=== PATIENT | male | born 1990 | race Caucasian/White ===

== ENCOUNTER 2023-05-07 11:17 | Emergency (ER) | payer BC ==
[2023-05-07] MEDS ORDERED: LIDOCAINE 5% PATCH TOPICAL STA (12:33)
[2023-05-07] MEDS ORDERED: ORPHENADRINE 30 MG/ML 2 ML VIAL IM STA (12:33)
--- NOTE | 2023-05-07 12:37 | ED ---
General Adult HPI - General Chief complaint: Extremity Injury, Lower Stated complaint: R leg injury Time Seen by Provider: 05/07/23 12:20 Source: patient, RN notes reviewed Mode of arrival: ambulatory - History of Present Illness Initial comments: 33-year-old male presents to the emergency department with chief complaint of right posterior thigh pain 3 days. He states that he was playing softball on Saturday when his right leg went stiff while running the bases. He states that he tightness in his right posterior thigh since then but no other muscle pain or stiffness. He reports that he did not fall. He reports that he is not having pain to the knee, hip. He reports no significant past medical history. No known medication ALLERGIES. Denies numbness, tingling. Denies fever, chills. - Related Data Previous Rx's Medication Instructions Recorded Cyclobenzaprine [Flexeril] 5 mg PO TID PRN #9 tablet 05/07/23 Allergies Allergy/AdvReac Type Severity Reaction Status Date / Time No Known Allergies Allergy Verified 05/07/23 12:09 Review of Systems ROS Statement: Those systems with pertinent positive or pertinent negative responses have been documented in the HPI. ROS Other: All systems not noted in ROS Statement are negative. Past Medical History Past Medical History: No Reported History History of Any Multi-Drug Resistant Organisms: None Reported Past Surgical History: Orthopedic Surgery, Tonsillectomy Additional Past Surgical History / Comment(s): rt elbow Past Psychological History: No Psychological Hx Reported Smoking Status: Former smoker Past Alcohol Use History: None Reported Past Drug Use History: Marijuana General Exam Limitations: no limitations General appearance: alert, in no apparent distress Head exam: Present: atraumatic, normocephalic, normal inspection Eye exam: Present: normal appearance ENT exam: Present: normal exam, mucous membranes moist Neck exam: Present: normal inspection. Absent: tenderness, meningismus, lymphadenopathy Respiratory exam: Present: normal lung sounds bilaterally. Absent: respiratory distress, wheezes, rales, rhonchi, stridor Cardiovascular Exam: Present: regular rate, normal rhythm, normal heart sounds. Absent: systolic murmur, diastolic murmur, rubs, gallop, clicks GI/Abdominal exam: Present: soft, normal bowel sounds. Absent: distended, tenderness, guarding, rebound, rigid Extremities exam: Present: normal inspection, full ROM, normal capillary refill, other (DP and PT pulses 2+, no lower extremity edema). Absent: tenderness, pedal edema, joint swelling, calf tenderness Back exam: Present: normal inspection. Absent: tenderness Neurological exam: Present: alert, oriented X3 Psychiatric exam: Present: normal affect, normal mood Skin exam: Present: warm, dry, intact, normal color. Absent: rash Course Vital Signs 05/07/23 05/07/23 12:05 13:24 Temperature 97.9 F 98.1 F Pulse Rate 70 78 Respiratory 20 18 Rate Blood Pressure 141/92 142/88 O2 Sat by Pulse 98 98 Oximetry Medical Decision Making - Medical Decision Making Was pt. sent in by a medical professional or institution (, PA, SPORTS MEDICINE COORDINATOR, urgent care, hospital, or prison...) When possible be specific @ -No Did you speak to anyone other than the patient for history (EMS, parent, family, police, friend...)? What history was obtained from this source @ -No Did you review nursing and triage notes (agree or disagree)? Why? @ -I reviewed and agree with nursing and triage notes Were old charts reviewed (outside hosp., previous admission, EMS record, old EKG, old radiological studies, urgent care reports/EKG's, prison records)? Report findings @ -No old charts were reviewed Differential Diagnosis (chest pain, altered mental status, abdominal pain women, abdominal pain men, vaginal bleeding, weakness, fever, dyspnea, syncope, headache, dizziness, GI bleed, back pain, seizure, CVA, palpatations, mental health, musculoskeletal)? @ -Differential Musculoskeletal Muscular strain, contusion, ligament sprain, fracture, arthritis, septic arthritis, bursitis, cellulitis, muscle spasm, nerve compression, DVT, arterial occlusion, herpes zoster, electrolyte abnormality, tumor.... This is not meant to be in all inclusive list EKG interpreted by me (3pts min.). @ -none X-rays interpreted by me (1pt min.). @ -None done CT interpreted by me (1pt min.). @ -None done U/S interpreted by me (1pt. min.). @ -None done What testing was considered but not performed or refused? (CT, X-rays, U/S, labs)? Why? @ -X-rays considered but patient is not having any bony tenderness. What meds were considered but not given or refused? Why? @ -None Did you discuss the management of the patient with other professionals (professionals i.e. Dr., PA, SPORTS MEDICINE COORDINATOR, lab, RT, psych nurse, social worker psychiatric, audio visual arts director, teacher, loan servicing officer, supportive employment case manager)? Give summary @ -No Was smoking cessation discussed for >3mins.? @ -No Was critical care preformed (if so, how long)? @ -No Were there social determinants of health that impacted care today? How? (Homelessness, low income, unemployed, alcoholism, drug addiction, transportation, low edu. Level, literacy, decrease access to med. care, alf, rehab)? @ -No Was there de-escalation of care discussed even if they declined (Discuss DNR or withdrawal of care, Hospice)? DNR status @ -No What co-morbidities impacted this encounter? (DM, HTN, Smoking, COPD, CAD, Cancer, CVA, ARF, Chemo, Hep., AIDS, mental health diagnosis, sleep apnea, morbid obesity)? @ -None Was patient admitted / discharged? Hospital course, mention meds given and route, prescriptions, significant lab abnormalities, going to OR and other pertinent info. @ -Discharged. Patient presented to emergency department chief complaint of pain in his right posterior thigh that started while playing softball this weekend. He reports that he feels that he possibly twisted and had sudden pain in the right leg and had to sit out for the duration of his game. Patient was given Norflex and a lidocaine patch which he states improves his symptoms. Patient was given Flexeril for home and advised not to take this while working, driving. Patient stable at time of discharge. Case discussed with my attending, Dr. jolly Undiagnosed new problem with uncertain prognosis? @ -No Drug Therapy requiring intensive monitoring for toxicity (Heparin, Nitro, Insulin, Cardizem)? @ -No Were any procedures done? @ -No Diagnosis/symptom? @ -Hamstring strain Acute, or Chronic, or Acute on Chronic? @ -Acute Uncomplicated (without systemic symptoms) or Complicated (systemic symptoms)? @ -uncomplicated Side effects of treatment? @ -No Exacerbation, Progression, or Severe Exacerbation? @ -No Poses a threat to life or bodily function? How? (Chest pain, [place], [place], pneumonia, PE, COPD, DKA, ARF, appy, cholecystitis, CVA, Diverticulitis, Homicidal, Suicidal, threat to staff... and all critical care pts) @ -No Disposition Clinical Impression: Hamstring strain Disposition: HOME SELF-CARE Condition: Stable Instructions (If sedation given, give patient instructions): Hamstring Injury (ED) Additional Instructions: Please do not drive or operate heavy machinery while taking muscle relaxer. Please return to the emergency department for new or worsening symptoms. Prescriptions: Cyclobenzaprine [Flexeril] 5 mg PO TID PRN #9 tablet PRN Reason: Muscle Spasm Is patient prescribed a controlled substance at d/c from ED?: No Referrals: None,Stated [Primary Care Provider] - 1-2 days Time of Disposition: 13:16
[2023-05-07 13:26] VITALS: BP 142/88; PULSE 78; RESP 18; TEMP 98.1
== END 2023-05-07 13:28 | disposition home or self-care (01) ==
LOC: EC 11:17
DX: S76.311A Strain of muscle, fascia and tendon of the posterior muscle group at thigh level, right thigh, initial encounter (principal); F12.90 Cannabis use, unspecified, uncomplicated; Z87.891 Personal history of nicotine dependence; X58.XXXA Exposure to other specified factors, initial encounter; Y93.64 Activity, baseball
CPT/HCPCS: 99283; 96372; J2360

== ENCOUNTER 2023-11-07 08:40 | Inpatient (IN) | payer BC ==
--- NOTE | 2023-11-07 09:25 | ED ---
Abdominal Pain HPI - General Chief Complaint: Abdominal Pain Stated Complaint: Left side ABD Pain Time Seen by Provider: 11/07/23 09:05 Source: patient, RN notes reviewed Mode of arrival: ambulatory Limitations: no limitations - History of Present Illness Initial Comments: Patient is a 33-year-old male presented to the emergency room today with a chief complaint of left-sided flank pain. Patient does admit that he had some symptoms off and on over the last week he has noted some darker urine. Even a smell to it. Patient states never had similar symptoms in the past. He denies any other past medical history. Patient does admit the pain is intermittent. States he is comfortable currently. Is declining pain medication. He denies any other symptoms or complaints at this time. Patient denies any recent fever, chills, shortness of breath, chest pain, vomiting, numbness or tingling, dysuria or hematuria, constipation or diarrhea, headaches or visual changes, or any other complaints. - Related Data Previous Rx's Medication Instructions Recorded Cyclobenzaprine [Flexeril] 5 mg PO TID PRN #9 tablet 05/07/23 Allergies Allergy/AdvReac Type Severity Reaction Status Date / Time No Known Allergies Allergy Verified 05/07/23 12:09 Review of Systems ROS Statement: Those systems with pertinent positive or pertinent negative responses have been documented in the HPI. ROS Other: All systems not noted in ROS Statement are negative. Past Medical History Past Medical History: No Reported History History of Any Multi-Drug Resistant Organisms: None Reported Past Surgical History: Adenoidectomy, Orthopedic Surgery, Tonsillectomy Additional Past Surgical History / Comment(s): rt elbow Past Psychological History: No Psychological Hx Reported Smoking Status: Former smoker Past Alcohol Use History: None Reported Past Drug Use History: Marijuana General Exam - General Exam Comments Initial Comments: General: The patient is awake and alert, in no distress, and does not appear acutely ill. Eye: Extra-ocular movements are intact. There is normal conjunctiva bilaterally. No signs of icterus. Ears, nose, mouth and throat: There are moist mucous membranes and no oral lesions. Neck: The neck is supple, there is no tenderness or JVD. Cardiovascular: There is a regular rate and rhythm. No murmur, rub or gallop is appreciated. Respiratory: respirations are non-labored Gastrointestinal: Mild tenderness to left lower quadrant. No rebound, or CVA tenderness. Musculoskeletal: Normal ROM, no tenderness. Strength 5/5. Sensation intact. Pulses equal bilaterally 2+. Neurological: A&O x 3. CN II-XII intact, There are no obvious motor or sensory deficits. Coordination appears grossly intact. Speech is normal. Skin: Skin is warm and dry and no rashes or lesions are noted. Psychiatric: Cooperative, appropriate mood & affect, normal judgment. Limitations: no limitations Course Vital Signs 11/07/23 11/07/23 08:53 10:35 Temperature 100.3 F H 98.4 F Pulse Rate 100 Respiratory 20 Rate Blood Pressure 162/105 O2 Sat by Pulse 98 Oximetry Medical Decision Making - Medical Decision Making History was obtained from patient/Nurse/Family/ ____ Initial assessment and chief complaint: Abdominal pain Chronic conditions affecting care: None Social determinants affecting care: None Differential diagnosis included, but not limited to: Kidney stone, gastroe nteritis, gastritis, diverticulitis, colitis Patient 33-year-old male with no significant past medical history presenting to the emergency room today with a chief complaint of left-sided abdominal pain over the last week. Does admit to some darker urine. Patient did have fever at triage. Remaining vitals were unremarkable. Patient urinalysis shows no sign of infection. Patient did have an elevated white count of 18,000. CT of the abdomen pelvis was reviewed and does show evidence of diverticulitis with abscess measuring 4 x 2 cm. Case discussed with surgeon Dr. Carrillo who will admit patient. Patient was started on antibiotics of Rocephin, Flagyl here in the emergency room. He will remain NPO. Dr. Carrillo states he will place consult to interventional radiologist. Patient does have cultures pending. Patient's been updated and he and family are aware of the plan. - Lab Data Result diagrams: 11/07/23 09:15 11/07/23 09:15 Lab Results 11/07/23 11/07/23 11/07/23 Range/Units 09:15 09:15 09:15 WBC 18.8 H (3.8-10.6) k/uL RBC 4.28 L (4.30-5.90) m/uL Hgb 12.5 L (13.0-17.5) gm/dL Hct 37.2 L (39.0-53.0) % MCV 86.9 (80.0-100.0) fL MCH 29.3 (25.0-35.0) pg MCHC 33.7 (31.0-37.0) g/dL RDW 12.4 (11.5-15.5) % Plt Count 472 H (150-450) k/uL MPV 7.7 Neutrophils % 82 % Lymphocytes % 11 % Monocytes % 5 % Eosinophils % 1 % Basophils % 0 % Neutrophils # 15.5 H (1.3-7.7) k/uL Lymphocytes # 2.1 (1.0-4.8) k/uL Monocytes # 0.9 (0-1.0) k/uL Eosinophils # 0.2 (0-0.7) k/uL Basophils # 0.0 (0-0.2) k/uL Sodium 136 L (137-145) mmol/L Potassium 4.5 (3.5-5.1) mmol/L Chloride 101 (98-107) mmol/L Carbon Dioxide 25 (22-30) mmol/L Anion Gap 10 mmol/L BUN 17 (9-20) mg/dL Creatinine 0.73 (0.66-1.25) mg/dL Est GFR (CKD-EPI)AfAm >90 (>60 ml/min/1.73 sqM) Est GFR (CKD-EPI)NonAf >90 (>60 ml/min/1.73 sqM) Glucose 107 H (74-99) mg/dL Plasma Lactic Acid Van (0.7-2.0) mmol/L Calcium 9.6 (8.4-10.2) mg/dL Total Bilirubin 0.6 (0.2-1.3) mg/dL AST 30 (17-59) U/L ALT 69 H (4-49) U/L Alkaline Phosphatase 261 H (38-126) U/L Total Protein 7.1 (6.3-8.2) g/dL Albumin 3.9 (3.5-5.0) g/dL Lipase 66 (23-300) U/L Urine Color Colorless Urine Appearance Clear (Clear) Urine pH 6.5 (5.0-8.0) Ur Specific [place] 1.002 (1.001-1.035) Urine Protein Negative (Negative) Urine Glucose (UA) Negative (Negative) Urine Ketones Negative (Negative) Urine Blood Negative (Negative) Urine Nitrite Negative (Negative) Urine Bilirubin Negative (Negative) Urine Urobilinogen <2.0 (<2.0) mg/dL Ur Leukocyte Esterase Negative (Negative) 11/07/23 Range/Units 10:24 WBC (3.8-10.6) k/uL RBC (4.30-5.90) m/uL Hgb (13.0-17.5) gm/dL Hct (39.0-53.0) % MCV (80.0-100.0) fL MCH (25.0-35.0) pg MCHC (31.0-37.0) g/dL RDW (11.5-15.5) % Plt Count (150-450) k/uL MPV Neutrophils % % Lymphocytes % % Monocytes % % Eosinophils % % Basophils % % Neutrophils # (1.3-7.7) k/uL Lymphocytes # (1.0-4.8) k/uL Monocytes # (0-1.0) k/uL Eosinophils # (0-0.7) k/uL Basophils # (0-0.2) k/uL Sodium (137-145) mmol/L Potassium (3.5-5.1) mmol/L Chloride (98-107) mmol/L Carbon Dioxide (22-30) mmol/L Anion Gap mmol/L BUN (9-20) mg/dL Creatinine (0.66-1.25) mg/dL Est GFR (CKD-EPI)AfAm (>60 ml/min/1.73 sqM) Est GFR (CKD-EPI)NonAf (>60 ml/min/1.73 sqM) Glucose (74-99) mg/dL Plasma Lactic Acid Van 0.8 (0.7-2.0) mmol/L Calcium (8.4-10.2) mg/dL Total Bilirubin (0.2-1.3) mg/dL AST (17-59) U/L ALT (4-49) U/L Alkaline Phosphatase (38-126) U/L Total Protein (6.3-8.2) g/dL Albumin (3.5-5.0) g/dL Lipase (23-300) U/L Urine Color Urine Appearance (Clear) Urine pH (5.0-8.0) Ur Specific [place] (1.001-1.035) Urine Protein (Negative) Urine Glucose (UA) (Negative) Urine Ketones (Negative) Urine Blood (Negative) Urine Nitrite (Negative) Urine Bilirubin (Negative) Urine Urobilinogen (<2.0) mg/dL Ur Leukocyte Esterase (Negative) Disposition Clinical Impression: Diverticulitis of intestine with abscess Disposition: [facility] Condition: Stable Referrals: None,Stated [Primary Care Provider] - 1-2 days Time of Disposition: 11:30
[2023-11-07] MEDS: SODIUM CHLORIDE 0.9% 1,000 ML IV STA (09:26)
[2023-11-07] MEDS: ACETAMINOPHEN TAB 500 MG TAB PO STA (09:31)
[2023-11-07 09:48] LABS: Appearance,Urine Clear (Clear); Bilirubin,Urine Negative (Negative); Blood,Urine Negative (Negative); Color,Urine Colorless; Glucose,Urine (UA) Negative (Negative); Ketones,Urine Negative (Negative); Leukocyte Esterase,Urine Negative (Negative); Nitrite,Urine Negative (Negative); PH, Urine 6.5 (5.0-8.0); Protein,Urine Negative (Negative); Specific Gravity,Urine 1.002 (1.001-1.035); Urobilinogen,Urine <2.0 mg/dL (<2.0)
[2023-11-07 09:49] LABS: Basophils % (A) 0 %; Eosinophils # (A) 0.2 k/uL (0-0.7); Eosinophils % (A) 1 %; HCT 37.2 % (39.0-53.0); HGB 12.5 gm/dL (13.0-17.5); Lymphocytes # (A) 2.1 k/uL (1.0-4.8); Lymphocytes % (A) 11 %; MCH 29.3 pg (25.0-35.0); MCHC 33.7 g/dL (31.0-37.0); MCV 86.9 fL (80.0-100.0); Mean Platelet Volume 7.7; Monocytes # (A) 0.9 k/uL (0-1.0); Monocytes % (A) 5 %; Neutrophils # (A) 15.5 k/uL (1.3-7.7); Neutrophils % (A) 82 %; Platelet Count 472 k/uL (150-450); RBC 4.28 m/uL (4.30-5.90); RDW 12.4 % (11.5-15.5); WBC 18.8 k/uL (3.8-10.6)
[2023-11-07 10:09] LABS: ALT 69 U/L (4-49); AST 30 U/L (17-59); African American GFR (CKD) >90 (>60 ml/min/1.73 sqM); Albumin 3.9 g/dL (3.5-5.0); Alkaline Phosphatase 261 U/L (38-126); Anion Gap 10 mmol/L; Blood Urea Nitrogen 17 mg/dL (9-20); Calcium 9.6 mg/dL (8.4-10.2); Carbon Dioxide 25 mmol/L (22-30); Chloride 101 mmol/L (98-107); Glucose 107 mg/dL (74-99); Lipase 66 U/L (23-300); Non-African American GFR(CKD) >90 (>60 ml/min/1.73 sqM); Potassium 4.5 mmol/L (3.5-5.1); Sodium 136 mmol/L (137-145); Total Bilirubin 0.6 mg/dL (0.2-1.3); Total Protein 7.1 g/dL (6.3-8.2)
--- NOTE | 2023-11-07 10:13 | CT ---
EXAMINATION TYPE: CT abdomen pelvis w con DATE OF EXAM: 11/07/2023 COMPARISON: None INDICATION: abd pain DLP: 1160.1 mGycm, Automated exposure control for dose reduction was used. CONTRAST: 100 mL of Isovue 300. Study performed without Oral Contrast TECHNIQUE: Axial images were obtained from above the diaphragm to the pubic rami in the axial plane a t 5 mm thick sections. Reconstructed images are reviewed on the computer in the coronal plane. FINDINGS: Limited CT sections are obtained the lung bases. The lung bases are clear. CT ABDOMEN: Liver: Normal Spleen: Normal Pancreas: Normal Adrenal glands: The adrenal glands are normal. Gallbladder: Decompressed. Kidneys: No masses are evident. No hydronephrosis is present. No cysts are present. Tiny cortical renal cyst on left kidney is identified on the delayed images. Aorta: Vascular calcification is within the aorta. Inferior vena cava: Normal. CT PELVIS: Scattered diverticuli within the descending colon through the sigmoid colon. Inflammatory changes are adjacent to the distal descending colon sigmoid colon junction. There is a low-density collection wh ich contains some air suspicious for abscess with adjacent acute diverticulitis. Delayed images this appears slightly better visualized measuring 4.3 cm x 2.0 cm . The studies without oral contrast li miting some evaluation. Appendix: Normal as visualized. Urinary bladder: Mildly diffusely thickened wall Genitourinary structures: Prostate appears normal Osseous structures: No suspicious lytic or sclerotic lesions. IMPRESSION: 1. Acute diverticulitis at the descending colon sigmoid colon junction. There is an abscess anterio r to the colon with surrounding inflammatory changes.
[2023-11-07] MEDS: metroNIDAZOLE-NS PMX 500 MG in SALINE 1 100ML.BAG IVPB STA (11:13)
[2023-11-07] MEDS ORDERED: NALOXONE 0.4 MG/ML 1 ML VIAL IV PRN (12:06)
[2023-11-07] MEDS: SODIUM CHLORIDE 0.9% 1,000 ML IV SCH (12:21)
[2023-11-07 13:11] LABS: INR 1.3 (<1.2); Prothrombin Time 13.5 sec (10.0-12.5)
--- NOTE | 2023-11-07 13:21 | P.GSHP ---
History of Present Illness H&P Date: 11/07/23 CHIEF COMPLAINT: Left lower quadrant abdominal pain HISTORY OF PRESENT ILLNESS: This is a 33-year-old male who presented to the hospital with complaints of left lower quadrant abdominal pain for the past week and a half. Patient reports that the pain does become very severe and sharp. He would rate the pain 10 out of 10. Pain currently a 7 out of 10. He denies any prior history of diverticulitis. He reports that the pain radiates from the left lower quadrant into the rectum. He reports he is having bowel movements. No constipation. Denies any blood in the stools. Denies any prior abdominal surgical history. CT scan of the abdomen and pelvis had shown evidence of acute diverticulitis of the descending colon and sigmoid colon junction. There is an abscess anterior to the colon with surrounding inflammatory changes. Patient has never had a colonoscopy. 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 REVIEW OF SYSTEMS: CONSTITUTIONAL: Denies fever or chills. HEENT: Denies blurred vision, vision changes, or eye pain. Denies hemoptysis CARDIOVASCULAR: Denies chest pain or pressure. RESPIRATORY: No shortness of breath. GASTROINTESTINAL: See HPI for pertinent findings HEMATOLOGIC: Denies bleeding disorders. GENITOURINARY: Denies any blood in urine or increased urinary frequency. SKIN: Denies pruitis. Denies rash. PHYSICAL EXAM: VITAL SIGNS: Reviewed GENERAL: Well-developed in no acute distress. HEENT: No sclera icterus. Extraocular movements grossly intact. Moist buccal mucosa. Head is atraumatic, normocephalic. No nasal drainage. ABDOMEN: Soft. Mildly distended. Tenderness left lower quadrant with pa lpation NEUROLOGIC: Alert and oriented. Cranial nerves II through XII grossly intact. LABORATORY DATA: WBC 18.8 Hgb 12.5 platelets 472 Sodium 136 potassium 4.5 creatinine 0.73 Lactic acid 0.8 ALT 69 alk phos 261 lipase 66 Urinalysis negative for infection IMAGING: CT scan abdomen pelvis reports acute diverticulitis of the descending colon sigmoid colon junction. There is an abscess anterior to the colon with surrounding phlegm Tory changes. Abscess measuring 4.3 cm x 2.0 cm ASSESSMENT: 1. Acute diverticulitis at the descending colon sigmoid colon junction with abscess PLAN: -Consult placed for interventional radiology for possible drainage of abscess -Keep patient n.p.o. -Continue IV antibiotics -Continue IV fluids -Continue pain management -GI prophylaxis Pepcid and DVT prophylaxis subcu heparin Physician Management Manager note has been reviewed by physician. Signing provider agrees with the documented findings, assessment, and plan of care. Past Medical History Past Medical History: No Reported History History of Any Multi-Drug Resistant Organisms: None Reported Past Surgical History: Adenoidectomy, Orthopedic Surgery, Tonsillectomy Additional Past Surgical History / Comment(s): rt elbow Past Psychological History: No Psychological Hx Reported Smoking Status: Former smoker Past Alcohol Use History: None Reported Past Drug Use History: Marijuana Medications and Allergies Home Medications Medication Instructions Recorded Confirmed Type Cyclobenzaprine [Flexeril] 5 mg PO TID PRN #9 tablet 05/07/23 Rx Allergies Allergy/AdvReac Type Severity Reaction Status Date / Time No Known Allergies Allergy Verified 05/07/23 12:09 Surgical - Exam Vital Signs Temp Pulse Resp BP Pulse Ox 100.3 F H 100 20 162/105 98 11/07/23 08:53 11/07/23 08:53 11/07/23 08:53 11/07/23 08:53 11/07/23 08:53 Results - Labs 11/07/23 09:15 11/07/23 09:15 Abnormal Lab Results - Last 24 Hours (Table) 11/07/23 11/07/23 Range/Units 09:15 09:15 WBC 18.8 H (3.8-10.6) k/uL RBC 4.28 L (4.30-5.90) m/uL Hgb 12.5 L (13.0-17.5) gm/dL Hct 37.2 L (39.0-53.0) % Plt Count 472 H (150-450) k/uL Neutrophils # 15.5 H (1.3-7.7) k/uL Sodium 136 L (137-145) mmol/L Glucose 107 H (74-99) mg/dL ALT 69 H (4-49) U/L Alkaline Phosphatase 261 H (38-126) U/L Diabetes panel 11/07/23 Range/Units 09:15 Sodium 136 L (137-145) mmol/L Potassium 4.5 (3.5-5.1) mmol/L Chloride 101 (98-107) mmol/L Carbon Dioxide 25 (22-30) mmol/L BUN 17 (9-20) mg/dL Creatinine 0.73 (0.66-1.25) mg/dL Glucose 107 H (74-99) mg/dL Calcium 9.6 (8.4-10.2) mg/dL AST 30 (17-59) U/L ALT 69 H (4-49) U/L Alkaline Phosphatase 261 H (38-126) U/L Total Protein 7.1 (6.3-8.2) g/dL Albumin 3.9 (3.5-5.0) g/dL Calcium panel 11/07/23 Range/Units 09:15 Calcium 9.6 (8.4-10.2) mg/dL Albumin 3.9 (3.5-5.0) g/dL Pituitary panel 11/07/23 Range/Units 09:15 Sodium 136 L (137-145) mmol/L Potassium 4.5 (3.5-5.1) mmol/L Chloride 101 (98-107) mmol/L Carbon Dioxide 25 (22-30) mmol/L BUN 17 (9-20) mg/dL Creatinine 0.73 (0.66-1.25) mg/dL Glucose 107 H (74-99) mg/dL Calcium 9.6 (8.4-10.2) mg/dL Adrenal panel 11/07/23 Range/Units 09:15 Sodium 136 L (137-145) mmol/L Potassium 4.5 (3.5-5.1) mmol/L Chloride 101 (98-107) mmol/L Carbon Dioxide 25 (22-30) mmol/L BUN 17 (9-20) mg/dL Creatinine 0.73 (0.66-1.25) mg/dL Glucose 107 H (74-99) mg/dL Calcium 9.6 (8.4-10.2) mg/dL Total Bilirubin 0.6 (0.2-1.3) mg/dL AST 30 (17-59) U/L ALT 69 H (4-49) U/L Alkaline Phosphatase 261 H (38-126) U/L Total Protein 7.1 (6.3-8.2) g/dL Albumin 3.9 (3.5-5.0) g/dL
[2023-11-07] MEDS ORDERED: metroNIDAZOLE-NS PMX 500 MG in SALINE 1 100ML.BAG IVPB SCH (16:00)
[2023-11-07] MEDS: HYDROmorphone 0.5 MG/0.5 ML SYRINGE IVP PRN (17:26)
[2023-11-07] MEDS: ONDANSETRON 4 MG/2 ML VIAL IVP PRN (17:27)
[2023-11-07] MEDS: metroNIDAZOLE-NS PMX 500 MG in SALINE 1 100ML.BAG IVPB SCH (18:20)
[2023-11-07] MEDS: HEPARIN SODIUM,PORCINE 5,000 UNIT/ML 1 ML VIAL SQ SCH (21:01)
[2023-11-08] MEDS: FAMOTIDINE 20 MG/2 ML VIAL IV SCH (08:40)
[2023-11-08 11:06] LABS: Basophils # (A) 0.03 X 10*3/uL (0.00-0.10); Basophils % (A) 0.2 %; Eosinophils # (A) 0.17 X 10*3/uL (0.04-0.35); Eosinophils % (A) 1.1 %; HCT 36.8 % (39.6-50.0); HGB 11.9 g/dL (13.0-17.0); Lymphocytes # (A) 1.79 X 10*3/uL (0.90-5.00); Lymphocytes % (A) 11.1 %; MCH 28.8 pg (27.0-32.0); MCHC 32.3 g/dL (32.0-37.0); MCV 89.1 FL (80.0-97.0); Mean Platelet Volume 9.5 FL (9.5-12.2); Monocytes # (A) 1.36 X 10*3/uL (0.20-1.00); Monocytes % (A) 8.4 %; NRBC Per 100 WBC 0 X 10*3/uL (0.00-0.01); Neutrophils # (A) 12.76 X 10*3/uL (1.80-7.70); Neutrophils % (A) 78.9 %; Platelet Count 426 X 10*3/uL (140-440); RBC 4.13 X 10*6/uL (4.40-5.60); RDW 12.5 % (11.5-14.5); WBC 16.16 X 10*3/uL (4.50-10.00)
[2023-11-08 11:46] LABS: BUN/Creat Ratio 12.62 Ratio (12.00-20.00); Blood Urea Nitrogen 10.1 mg/dL (9.0-27.0); Calcium 8.6 mg/dL (8.7-10.3); Carbon Dioxide 22.1 mmol/L (21.6-31.8); Chloride 102 mmol/L (96-109); Glucose 76 mg/dL (70-110); Potassium 4.5 mmol/L (3.5-5.5); Sodium 138 mmol/L (135-145)
--- NOTE | 2023-11-08 14:14 | CT ---
EXAMINATION TYPE: CT discontinued procedure CT DLP: 363 mGycm, Automated exposure control for dose reduction was used. DATE OF EXAM: 11/08/2023 2:06 PM COMPARISON: 11/07/2023 CLINICAL INDICATION:Male, 33 years old with history of diverticular abscess; TECHNIQUE: CT discontinued procedure; axial imaging of the lower abdomen is performed for preprocedu ral planning. Contrast used: mL of , (none if empty) Oral contrast used: (none if empty) FINDINGS: Imaging of the left lower quadrant demonstrates progression of findings compatible with bowel perfora tion with increased pneumoperitoneum. No organizing fluid collection identified suitable for drainage catheter. Fat stranding changes are seen in the left lower quadrant. There is scattered colonic dive rticula present. Findings discussed with surgeon at the the time of scan. IMPRESSION: Procedure canceled due to progression of bowel perforation findings with increased gas in the left lo wer quadrant without organizing fluid collection to target for drainage catheter placement.
--- NOTE | 2023-11-08 15:02 | P.PN ---
Subjective Progress Note Date: 11/08/23 CHIEF COMPLAINT: Abdominal pain HISTORY OF PRESENT ILLNESS: Patient reports that his left lower quadrant abdominal pain is the same as yesterday. He denies any nausea or vomiting. He has had some flatus. Afebrile. Heart rate 101. WBC is down from 18-16. Patient initially scheduled for drain placement for the diverticular abscess. CT images were reviewed by Dr. Cosme and Dr. Carrillo. Drainage tube PHYSICAL EXAM: VITAL SIGNS: Reviewed. GENERAL: Well-developed in no acute distress. ABDOMEN: Soft. Nondistended. Left lower quadrant tenderness with palpation NEUROLOGIC: Alert and oriented. Cranial nerves II through XII grossly intact. ASSESSMENT: 1. Acute diverticulitis at the descending colon sigmoid colon junction with abscess PLAN: -Patient initially scheduled for a CT-guided drain placement for diverticular abscess. CT images were reviewed by Dr. Cosme and Dr. Carrillo. Drainage tube was not placed. Patient is now scheduled for exploratory laparotomy with possible bowel resection and possible ostomy today with Dr. Carrillo -Keep patient n.p.o. -Continue antibiotics -Continue supportive care Physician Engine Emission Technician note has been reviewed by physician. Signing provider agrees with the documented findings, assessment, and plan of care. I have personally seen and examined the patient, reviewed the HOT PIPE GAUGER /PAs history, exam and MDM and agree with the assessment and plan as written. Based on total visit time, I have performed more than 50% of the visit. As above: Patient had increased pain earlier this morning. Repeat CAT scan performed for the placement of the drain and unfortunately now he has multiple foci of air around that sigmoid colon loop. This is not a drainable situation and certainly has progressed since yesterday. Clinical scenario reviewed with patient. Patient with increased tenderness on exam. Will proceed with exploratory laparotomy. Possible bowel resection, possible ostomy. Discussed with patient that if we could proceed with drainage only or resection and avoid ostomy we would do so. Risk of bleeding, infection, scarring, abscess, recurre nt perforation, possible need for further surgery, possible need for ostomy, ureteral injury, wound infection, hernia, progressive sepsis discussed. He understands and wishes to proceed. Objective - Vital Signs Vital signs: Vital Signs Temp 98.4 F 11/08/23 13:06 Pulse 101 H 11/08/23 13:30 Resp 20 11/08/23 13:30 BP 121/80 11/08/23 13:30 Pulse Ox 97 11/08/23 13:30 FiO2 Intake & Output 11/07/23 11/08/23 11/08/23 18:59 06:59 18:59 Intake Total 0 Balance 0 Weight 95.254 kg Intake: Oral 0 Other: Voiding Method Toilet # Voids 3 - Labs CBC & Chem 7: 11/08/23 06:13 11/08/23 06:13 Labs: Abnormal Lab Results - Last 24 Hours (Table) 11/08/23 11/08/23 Range/Units 06:13 06:13 WBC 16.16 H (4.50-10.00) X 10*3/uL RBC 4.13 L (4.40-5.60) X 10*6/uL Hgb 11.9 L (13.0-17.0) g/dL Hct 36.8 L (39.6-50.0) % Immature Gran # 0.05 H (0.00-0.04) X 10*3/uL Neutrophils # 12.76 H (1.80-7.70) X 10*3/uL Monocytes # 1.36 H (0.20-1.00) X 10*3/uL Anion Gap 13.90 H (4.00-12.00) mmol/L Calcium 8.6 L (8.7-10.3) mg/dL
[2023-11-08] MEDS: LACTATED RINGERS 1,000 ML IV ONE ×2 (15:05→17:38)
[2023-11-08] MEDS: ONDANSETRON 4 MG/2 ML VIAL IVP ONE (15:19)
[2023-11-08] MEDS: DEXAMETHASONE SOD PHOSPHATE 4 MG/ML 1 ML VIAL IVP ONE (15:20)
[2023-11-08] MEDS: PIPERACILLIN-TAZOBACTAM 3.375 GM in SODIUM CHLORIDE 0.9% 100 ML IVPB SCH (16:15)
[2023-11-08] MEDS ORDERED: PROPOFOL 10 MG/ML 20 ML VIAL IV ONE (16:24)
[2023-11-08] MEDS ORDERED: fentaNYL (PF) 50 MCG/ML 2 ML AMP ONE (16:24)
[2023-11-08] MEDS ORDERED: HYDROmorphone (PF) 1 MG/ML ONE (16:24)
[2023-11-08] MEDS ORDERED: NEOSTIGMINE 1 MG/ML 10 ML VIAL ONE (16:24)
[2023-11-08] MEDS ORDERED: SUCCINYLCHOLINE CHLORIDE 200 MG/10 ML VIAL IV ONE (16:24)
[2023-11-08] MEDS ORDERED: KETAMINE HCL IN 0.9 % NACL 50 MG/5 ML SYRINGE ONE (16:24)
[2023-11-08] MEDS ORDERED: GLYCOPYRROLATE 0.2 MG/ML 2 ML VIAL ONE (16:24)
[2023-11-08] MEDS ORDERED: MIDAZOLAM 2 MG/2 ML VIAL ONE (16:24)
[2023-11-08] MEDS ORDERED: ROCURONIUM 10 MG/ML (5 ML VIAL) IV ONE (16:24)
[2023-11-08] MEDS ORDERED: LIDOCAINE 1% INJ 10MG/ML (20 ML MDV) ONE (16:24)
--- NOTE | 2023-11-08 18:30 | P.OP ---
Date of Procedure: 11/08/23 Procedure(s) Performed: PREOPERATIVE DIAGNOSIS: Perforated sigmoid diverticulitis POSTOPERATIVE DIAGNOSIS: Same PROCEDURE: Sigmoid colectomy with end colostomy SURGEON: Lorena EBL: 50 mL ANESTHESIA: General COMPLICATIONS: None OPERATIVE PROCEDURE: Patient place in the operative table in the supine position. The patient was placed under general anesthesia. The abdomen was prepped and draped in usual sterile fashion. Palpation of the abdominal wall revealed significant firmness and induration left lower quadrant. A vertical incision was made encompassing extending from the suprapubic region above the umbilicus. The fascia was divided as well. There was no free fluid in the abdomen. Palpation of the left lower quadrant revealed the sigmoid colon densely adherent to the abdominal wall. Using blunt dissection I was able to mobilize the proximal sigmoid colon where the perforation was present. A large amount of purulent fluid was evacuated. Cultures were taken. The bowel was divided distal to the inflamed segment using a linear 75 stapler. The mesoappendix was divided using a LigaSure device. The site of perforation was identified. I divided the sigmoid colon proximal to this using a linear 75 stapler. The mesentery was divided at that time using the LigaSure device. Beyond the inflamed segment I divided the distal sigmoid colon using a contour stapler. 2 separate 2-0 Prolene sutures were used on the staple line for future identification. The sigmoid colon was then mobilized further by dividing a portion of mesentery proximally and also dividing the white line of Toldt. Once I had enough length on the colon the abdomen was copiously irrigated with 3 L of saline. No further purulence was encountered at that time. A drain was placed into the abdominal cavity from the right lower quadrant. This drain looped down into the pelvis and up along the left gutter. This was sutured to the skin using a 3-0 silk stitch. A circular incision was made in the left midabdomen. Dissection through the subcutaneous fat and fascia took place using electrocautery. I bluntly entered the peritoneal cavity and this was further bluntly opened. The bowel was brought out through this defect in the left midabdomen. The midline fascia was then reapproximated using 2 separate double- stranded #1 PDS sutures. The subcutaneous tissues were irrigated. The subcutaneous tissues were closed using 3-0 Vicryl sutures. The skin was then closed using elena. The ostomy was then addressed. A portion of the pericolonic fat was removed using the LigaSure device. The staple line was then removed using electrocautery. The ostomy was then matured in a new [place] fashion using interrupted 3-0 Vicryl sutures. An ostomy appliance was then applied. Sterile dressings were then applied to the midline incision. DISPOSITION: Stable to recovery room
[2023-11-08] MEDS: HYDROmorphone 0.5 MG/0.5 ML SYRINGE IVP ONE ×4 (19:14→19:59)
[2023-11-08] MEDS ORDERED: NALOXONE 0.4 MG/ML 1 ML VIAL IV PRN (20:27)
[2023-11-08] MEDS: KETOROLAC 15 MG/ML 1 ML VIAL IVP SCH (20:39)
[2023-11-08] MEDS: HYDROmorphone PCA 10 MG/50 ML BAG IV PRN (21:07)
[2023-11-08] MEDS: ACETAMINOPHEN IV (For NPO) 1,000 MG in EMPTY BAG 1 BAG IVPB SCH (23:06)
[2023-11-09] MEDS: PANTOPRAZOLE 40 MG/10 ML VIAL IV SCH (08:00)
--- NOTE | 2023-11-09 09:01 | P.CONS ---
History of Present Illness - Reason for Consult Consult date: 11/08/23 Diverticulitis with abscess Requesting physician: Tamar Ibarra - Chief Complaint Abdominal pain x few days - History of Present Illness Patient is a 33-year-old male with no significant past medical history presenting to the ER for evaluation of left-sided abdominal pain that has been going off and on for about a week before presentation to the hospital patient was describing the pain to be more of a dull aching to sharp moderate intensity without any significant radiation did have some nausea but no vomiting denies having any diarrhea he did have some darker urine but no hematuria did have some chills with the symptoms the patient presented to the hospital on arrival to the ER he did have a temperature of 100.3 F patient was tachycardic at 1 point but not hypotensive or hypoxic patient did have a white count of 18.8 with a left shift creatinine 0.73 liver enzymes are normal urine is negative patient did have a CT abdominal pelvis acute diverticulitis of the descending colon abscess anterior to the colon with surrounding inflammatory changes patient was started on Rocephin and Flagyl infectious was consulted for further management of antibiotic therapy IR has been consulted for drainage of this abscess Review of Systems Positive point and negatives has been mentioned in the HPI, complete review of systems was performed and all other systems are negative Past Medical History Past Medical History: No Reported History History of Any Multi-Drug Resistant Organisms: None Reported Year Discovered:: MDRO Source:: elbow Past Surgical History: Adenoidectomy, Orthopedic Surgery, Tonsillectomy Additional Past Surgical History / Comment(s): rt elbow Past Anesthesia/Blood Transfusion Reactions: No Reported Reaction Past Psychological History: No Psychological Hx Reported Smoking Status: Former smoker Past Alcohol Use History: None Reported Past Drug Use History: Marijuana - Past Family History Father Family Medical History: Hypertension Medications and Allergies Home Medications Medication Instructions Recorded Confirmed Type Cetirizine HCl [Zyrtec] 10 mg PO DAILY 11/07/23 11/07/23 History Allergies Allergy/AdvReac Type Severity Reaction Status Date / Time No Known Allergies Allergy Verified 11/08/23 15:09 Physical Exam Vitals: Vital Signs Temp Pulse Pulse Resp BP BP Pulse Ox 11/08/23 08:00 20 11/08/23 07:15 97.9 F 100 19 102/57 99 11/08/23 02:00 98.8 F 86 17 108/65 96 11/07/23 20:00 98.3 F 87 17 122/73 96 11/07/23 17:13 98.2 F 86 16 119/72 98 11/07/23 14:50 98.7 F 68 18 127/68 99 Intake and Output 11/07/23 11/08/23 11/08/23 22:59 06:59 14:59 Intake Total 0 Balance 0 Intake: Oral 0 Other: Voiding Method Toilet # Voids 3 GENERAL DESCRIPTION: Middle-aged male lying in bed, no distress. No tachypnea or accessory muscle of respiration use. HEENT: Shows Pallor , no scleral icterus. Oral mucous membrane is dry. No pharyngeal erythema or thrush NECK: Trachea central, no thyromegaly. LUNGS: Unlabored breathing. Clear to auscultation anteriorly. No wheeze or crackle. HEART: S1, S2, regular rate and rhythm. No loud murmur ABDOMEN: Soft, mild tenderness , no guarding or rigidity EXTREMITIES: No edema of feet. SKIN: No rash, no masses palpable. NEUROLOGICAL: The patient is awake, alert, oriented x3, mood and affect normal. Results CBC & Chem 7: 11/08/23 06:13 11/08/23 06:13 Labs: Abnormal Lab Results - Last 24 Hours (Table) 11/07/23 Range/Units 12:53 PT 13.5 H (10.0-12.5) sec INR 1.3 H (<1.2) Assessment and Plan (1) Sepsis Current Visit: Yes Status: Acute Code(s): A41.9 - SEPSIS, UNSPECIFIED ORGANISM SNOMED Code(s): 77450183 (2) Diverticulitis of intestine with abscess Current Visit: Yes Status: Acute Code(s): K57.80 - DVTRCLI OF INTEST, PART UNSP, W PERF AND ABSCESS W/O BLEED SNOMED Code(s): 495570807 Plan: 1patient presented to hospital with sepsis in this patient presented with a fever did have a tachycardia elevated white count source is likely intra- abdominal abscess from perforated sigmoid diverticulitis and will need to cover for enteric gram-negative both aerobes and anaerobes 2-await IR evaluation for drainage of the abscess specimen should be sent for culture both aerobes and anaerobes 3-discontinue Rocephin and Flagyl 4-start the patient on Zosyn 3.375 g every 8 hours We will follow on clinical condition and cultures to further adjust medication if needed Thank you for this consultation we will follow the patient along with you Dictation was produced using [employer] dictation software. please excuse any grammatical, word or spelling errors. Time with Patient: Greater than 30
[2023-11-09 09:39] LABS: Basophils # (A) 0.04 X 10*3/uL (0.00-0.10); Basophils % (A) 0.2 %; Eosinophils # (A) 0 X 10*3/uL (0.04-0.35); Eosinophils % (A) 0 %; HCT 40.2 % (39.6-50.0); HGB 13.1 g/dL (13.0-17.0); Lymphocytes # (A) 1.19 X 10*3/uL (0.90-5.00); Lymphocytes % (A) 5.7 %; MCH 28.4 pg (27.0-32.0); MCHC 32.6 g/dL (32.0-37.0); Mean Platelet Volume 9.3 FL (9.5-12.2); Monocytes # (A) 1.21 X 10*3/uL (0.20-1.00); Monocytes % (A) 5.8 %; NRBC Per 100 WBC 0 X 10*3/uL (0.00-0.01); Neutrophils # (A) 18.18 X 10*3/uL (1.80-7.70); Neutrophils % (A) 87.6 %; Platelet Count 541 X 10*3/uL (140-440); RBC 4.62 X 10*6/uL (4.40-5.60); RDW 12.4 % (11.5-14.5); WBC 20.76 X 10*3/uL (4.50-10.00)
[2023-11-09 10:39] LABS: ALT 33 U/L (10-49); AST 13 U/L (14-35); Albumin 3.2 g/dL (3.8-4.9); Alkaline Phosphatase 199 U/L (41-126); Blood Urea Nitrogen 10.5 mg/dL (9.0-27.0); Calcium 8.8 mg/dL (8.7-10.3); Carbon Dioxide 22.4 mmol/L (21.6-31.8); Chloride 99 mmol/L (96-109); Globulin 2.9 g/dL (1.6-3.3); Glucose 94 mg/dL (70-110); Potassium 4.8 mmol/L (3.5-5.5); Sodium 137 mmol/L (135-145); Total Bilirubin 0.5 mg/dL (0.3-1.2); Total Protein 6.1 g/dL (6.2-8.2)
--- NOTE | 2023-11-09 16:08 | P.PN ---
Subjective Progress Note Date: 11/09/23 NAEON. Mild nausea but no emesis. No F/C. NO SOB or CP. Minimal ambulation since OR. Pain is moderately controlled. Objective - Vital Signs Vital signs: Vital Signs Temp 98.4 F 11/09/23 13:33 Pulse 73 11/09/23 13:33 Resp 18 11/09/23 13:33 BP 126/81 11/09/23 13:33 Pulse Ox 97 11/09/23 13:33 FiO2 Intake & Output 11/08/23 11/09/23 11/09/23 18:59 06:59 18:59 Intake Total 1800 Output Total 300 1310 Balance 1500 -1310 Intake: IV 1800 Output: Drainage 10 Right Abdomen 10 Urine 250 1300 Estimated Blood Loss 50 Other: Voiding Method Toilet Indwelling Catheter Indwelling Catheter # Voids 3 - Exam Gen: AxO, NAD Pulm: non-labored respirations Abd: soft, moderately-tender around incisions, mildly-distended. No guarding/rebound/rigidity Salty: intact producing serous output Ostomy: pink and patent. Producing bowel sweat. No stool or gas seen in bag Extrem: no edema seen - Labs CBC & Chem 7: 11/09/23 06:29 11/09/23 06:29 Labs: Abnormal Lab Results - Last 24 Hours (Table) 11/09/23 11/09/23 Range/Units 06:29 06:29 WBC 20.76 H (4.50-10.00) X 10*3/uL Plt Count 541 H (140-440) X 10*3/uL MPV 9.3 L (9.5-12.2) FL Immature Gran # 0.14 H (0.00-0.04) X 10*3/uL Neutrophils # 18.18 H (1.80-7.70) X 10*3/uL Monocytes # 1.21 H (0.20-1.00) X 10*3/uL Eosinophils # 0 L (0.04-0.35) X 10*3/uL Anion Gap 15.60 H (4.00-12.00) mmol/L AST 13 L (14-35) U/L Alkaline Phosphatase 199 H (41-126) U/L Total Protein 6.1 L (6.2-8.2) g/dL Albumin 3.2 L (3.8-4.9) g/dL Albumin/Globulin Ratio 1.10 L (1.60-3.17) Ratio Microbiology - Last 24 Hours (Table) 11/07/23 10:00 Blood Culture - Preliminary Blood 11/07/23 10:15 Blood Culture - Preliminary Blood Assessment and Plan Assessment: Patient is a 33 year old male who is s/p Jayden's procedure for perforated diverticulitits Plan: -NPO -IVF hydration -IV abx -PRN pain and nausea control -Strict I/O -Encourage ambulation -DVT/GI PPx Dereje Grijalva MD General Surgery
[2023-11-09] MEDS: HYDROmorphone 1 MG/ML 1 ML SYRINGE IVP STA (21:29)
[2023-11-10] MEDS: fentaNYL PCA 500 MCG/50 ML BAG IV PRN (00:21)
[2023-11-10] MEDS: SIMETHICONE 40 MG/0.6 ML DROPS 2,000 MG/30 ML BOTTLE PO SCH (10:27)
--- NOTE | 2023-11-10 12:36 | P.PN ---
Subjective Progress Note Date: 11/10/23 Principal diagnosis: Diverticulitis Patient says pain seems to be slowly improving. Was bad for the first 24 hours after surgery. Patient has had flatus through the ostomy. Some belching. Mild nausea. Pretty catheter remains in place. He has been ambulating in the hallways. White blood cell count remained elevated yesterday. Morning labs pending. Objective - Vital Signs Vital signs: Vital Signs Temp 98.6 F 11/10/23 07:08 Pulse 82 11/10/23 07:30 Resp 16 11/10/23 07:30 BP 151/95 11/10/23 07:09 Pulse Ox 97 11/10/23 08:21 FiO2 Intake & Output 11/09/23 11/10/23 11/10/23 18:59 06:59 18:59 Output Total 460 550 Balance -460 -550 Output: Urine 460 550 Other: Voiding Method Indwelling Catheter Indwelling Catheter Indwelling Catheter - Exam Abdomen: Soft, dressing clean and dry, ostomy with flatus - Labs CBC & Chem 7: 11/09/23 06:29 11/09/23 06:29 Labs: Microbiology - Last 24 Hours (Table) 11/08/23 17:07 Gram Stain - Preliminary Incision Wound Culture - Preliminary 11/07/23 10:00 Blood Culture - Preliminary Blood 11/07/23 10:15 Blood Culture - Preliminary Blood Assessment and Plan (1) Diverticulitis of intestine with abscess Narrative/Plan: Patient seems to be slowly improving. Keep n.p.o. for now. Add Toradol for pain control. Continue ambulation. Continue broad-spectrum antibiotics. Current Visit: Yes Status: Acute Code(s): K57.80 - DVTRCLI OF INTEST, PART UNSP, W PERF AND ABSCESS W/O BLEED SNOMED Code(s): 610528790
[2023-11-10] MEDS: KETOROLAC 15 MG/ML 1 ML VIAL IVP SCH (13:12)
--- NOTE | 2023-11-10 16:15 | P.PN ---
Subjective Progress Note Date: 11/09/23 Principal diagnosis: Reason for follow-up is perforated diverticulitis and intra-abdominal abscess Patient is a 33-year-old male with no significant past medical history presenting to the ER for evaluation of left-sided abdominal pain, patient has been diagnosed with diverticulitis with peridiverticular abscess which could not be drained CT-guided patient was taken to the OR and the patient is status post sigmoid colectomy with end colostomy abdominal cultures obtained which are currently pending on today's evaluation that is 11/09/2023, the patient denies having any fever or any chills, he is breathing comfortably 2 L nasal cannula oxygen denies any chest pain shortness with occasional cough abdominal pain is controlled with the pain medication no nausea no vomiting. Patient white count is up to 20.76, creatinine 0.7 blood cultures currently pending Objective - Vital Signs Vital signs: Vital Signs Temp 98 F 11/09/23 07:15 Pulse 84 11/09/23 08:00 Resp 17 11/09/23 08:00 BP 153/85 11/09/23 07:15 Pulse Ox 97 11/09/23 07:15 FiO2 Intake & Output 11/08/23 11/09/23 11/09/23 18:59 06:59 18:59 Intake Total 1800 Output Total 300 1310 Balance 1500 -1310 Intake: IV 1800 Output: Drainage 10 Right Abdomen 10 Urine 250 1300 Estimated Blood Loss 50 Other: Voiding Method Toilet Indwelling Catheter Indwelling Catheter # Voids 3 - Exam GENERAL DESCRIPTION: Middle-age male lying in bed in no distress RESPIRATORY SYSTEM: Unlabored breathing , decreased breath sounds at bases HEART: S1 S2 regular rate and rhythm , ABDOMEN: Soft , mild tenderness EXTREMITIES: No edema feet - Labs CBC & Chem 7: 11/09/23 06:29 11/09/23 06:29 Labs: Abnormal Lab Results - Last 24 Hours (Table) 11/08/23 11/08/23 11/09/23 Range/Units 06:13 06:13 06:29 WBC 16.16 H 20.76 H (4.50-10.00) X 10*3/uL RBC 4.13 L (4.40-5.60) X 10*6/uL Hgb 11.9 L (13.0-17.0) g/dL Hct 36.8 L (39.6-50.0) % Plt Count 541 H (140-440) X 10*3/uL MPV 9.3 L (9.5-12.2) FL Immature Gran # 0.05 H 0.14 H (0.00-0.04) X 10*3/uL Neutrophils # 12.76 H 18.18 H (1.80-7.70) X 10*3/uL Monocytes # 1.36 H 1.21 H (0.20-1.00) X 10*3/uL Eosinophils # 0 L (0.04-0.35) X 10*3/uL Anion Gap 13.90 H (4.00-12.00) mmol/L Calcium 8.6 L (8.7-10.3) mg/dL AST (14-35) U/L Alkaline Phosphatase (41-126) U/L Total Protein (6.2-8.2) g/dL Albumin (3.8-4.9) g/dL Albumin/Globulin Ratio (1.60-3.17) Ratio // Range/Units 06:29 WBC (4.50-10.00) X 10*3/uL RBC (4.40-5.60) X 10*6/uL Hgb (13.0-17.0) g/dL Hct (39.6-50.0) % Plt Count (140-440) X 10*3/uL MPV (9.5-12.2) FL Immature Gran # (0.00-0.04) X 10*3/uL Neutrophils # (1.80-7.70) X 10*3/uL Monocytes # (0.20-1.00) X 10*3/uL Eosinophils # (0.04-0.35) X 10*3/uL Anion Gap 15.60 H (4.00-12.00) mmol/L Calcium (8.7-10.3) mg/dL AST 13 L (14-35) U/L Alkaline Phosphatase 199 H (41-126) U/L Total Protein 6.1 L (6.2-8.2) g/dL Albumin 3.2 L (3.8-4.9) g/dL Albumin/Globulin Ratio 1.10 L (1.60-3.17) Ratio Microbiology - Last 24 Hours (Table) 11/07/23 10:00 Blood Culture - Preliminary Blood 11/07/23 10:15 Blood Culture - Preliminary Blood Assessment and Plan (1) Sepsis Current Visit: Yes Status: Acute Code(s): A41.9 - SEPSIS, UNSPECIFIED ORG ANISM SNOMED Code(s): 11394233 (2) Diverticulitis of intestine with abscess Current Visit: Yes Status: Acute Code(s): K57.80 - DVTRCLI OF INTEST, PART UNSP, W PERF AND ABSCESS W/O BLEED SNOMED Code(s): 231096188 Plan: 1patient presented to hospital with sepsis in this patient presented with a fever did have a tachycardia elevated white count source is likely intra- abdominal abscess from perforated sigmoid diverticulitis and will need to cover for enteric gram-negative both aerobes and anaerobes 2- patient is status post laparotomy sigmoid colectomy and end colostomy and abdominal cultures are currently pending 3-patient to continue with Zosyn 3.375 g every 8 hours, slight worsening of the white count more likely reactive post surgery and will monitor closely Dictation was produced using [employer] dictation software. please excuse any grammatical, word or spelling errors. Time with Patient: Less than 30
--- NOTE | 2023-11-10 16:16 | P.PN ---
Subjective Progress Note Date: 11/10/23 Principal diagnosis: Reason for follow-up is perforated diverticulitis and intra-abdominal abscess Patient is a 33-year-old male with no significant past medical history presenting to the ER for evaluation of left-sided abdominal pain, patient has been diagnosed with diverticulitis with peridiverticular abscess which could not be drained CT-guided patient was taken to the OR and the patient is status post sigmoid colectomy with end colostomy abdominal cultures obtained which are currently pending on today's evaluation that is 11/10/2023, the patient remains to be afebrile, patient is breathing comfortably on room air and no need for supplemental oxygen, the patient currently sleepy and resting per the at the bedside overall doing better abdominal pain has decreased no vomiting or any other changes reported. No lab draw today abdominal cultures pending Objective - Vital Signs Vital signs: Vital Signs Temp 99.1 F 11/10/23 12:42 Pulse 83 11/10/23 12:42 Resp 17 11/10/23 12:42 BP 151/91 11/10/23 12:42 Pulse Ox 93 L 11/10/23 12:42 FiO2 Intake & Output 11/09/23 11/10/23 11/10/23 18:59 06:59 18:59 Output Total 460 550 Balance -460 -550 Output: Urine 460 550 Other: Voiding Method Indwelling Catheter Indwelling Catheter Indwelling Catheter - Exam GENERAL DESCRIPTION: Middle-age male lying in bed in no distress RESPIRATORY SYSTEM: Unlabored breathing , decreased breath sounds at bases HEART: S1 S2 regular rate and rhythm , ABDOMEN: Soft , mild tenderness EXTREMITIES: No edema feet - Labs CBC & Chem 7: 11/09/23 06:29 11/09/23 06:29 Labs: Microbiology - Last 24 Hours (Table) 11/08/23 17:07 Gram Stain - Preliminary Incision Wound Culture - Preliminary 11/07/23 10:00 Blood Culture - Preliminary Blood 11/07/23 10:15 Blood Culture - Preliminary Blood Assessment and Plan (1) Sepsis Current Visit: Yes Status: Acute Code(s): A41.9 - SEPSIS, UNSPECIFIED ORGANISM SNOMED Code(s): 22466466 (2) Diverticulitis of intestine with abscess Current Visit: Yes Status: Acute Code(s): K57.80 - DVTRCLI OF INTEST, PART UNSP, W PERF AND ABSCESS W/O BLEED SNOMED Code(s): 238086153 Plan: 1patient presented to hospital with sepsis in this patient presented with a fever did have a tachycardia elevated white count source is likely intra- abdominal abscess from perforated sigmoid diverticulitis and will need to cover for enteric gram-negative both aerobes and anaerobes 2- patient is status post laparotomy sigmoid colectomy and end colostomy and abdominal cultures are currently pending 3-patient to continue with Zosyn 3.375 g every 8 hours, We will repeat a CBC with a.m. lab to make sure white count is trending down at the bedside questions were answered Dictation was produced using [employer] dictation software. please excuse any grammatical, word or spelling errors. Time with Patient: Less than 30
[2023-11-11 08:48] LABS: Basophils # (A) 0.04 X 10*3/uL (0.00-0.10); Basophils % (A) 0.3 %; Eosinophils # (A) 0.33 X 10*3/uL (0.04-0.35); Eosinophils % (A) 2.5 %; HCT 33.9 % (39.6-50.0); HGB 10.9 g/dL (13.0-17.0); Lymphocytes # (A) 1.56 X 10*3/uL (0.90-5.00); Lymphocytes % (A) 11.7 %; MCH 28.7 pg (27.0-32.0); MCHC 32.2 g/dL (32.0-37.0); MCV 89.2 FL (80.0-97.0); Mean Platelet Volume 9.3 FL (9.5-12.2); Monocytes # (A) 0.83 X 10*3/uL (0.20-1.00); Monocytes % (A) 6.2 %; NRBC Per 100 WBC 0 X 10*3/uL (0.00-0.01); Neutrophils # (A) 10.44 X 10*3/uL (1.80-7.70); Neutrophils % (A) 78.4 %; Platelet Count 577 X 10*3/uL (140-440); RDW 12.7 % (11.5-14.5); WBC 13.32 X 10*3/uL (4.50-10.00)
[2023-11-11 09:11] LABS: Blood Urea Nitrogen 14.5 mg/dL (9.0-27.0); Chloride 107 mmol/L (96-109); Glucose 97 mg/dL (70-110); Potassium 4.6 mmol/L (3.5-5.5); Sodium 140 mmol/L (135-145)
[2023-11-11 09:12] LABS: Calcium 8.3 mg/dL (8.7-10.3); Carbon Dioxide 22.6 mmol/L (21.6-31.8)
--- NOTE | 2023-11-11 14:25 | P.PN ---
Subjective Progress Note Date: 11/11/23 CHIEF COMPLAINT: Abdominal pain HISTORY OF PRESENT ILLNESS: Perforated sigmoid diverticulitis status post sigmoid colectomy with end colostomy. Postop day #3 patient is having flatus through the ostomy. No stool. He reports that his pain is improving each day. Denies any nausea or vomiting. SANFORD drain 250 mL serous output. Cultures negative so far. Afebrile. WBC is down from 20-13.32 hemoglobin 10.9 platelets 577 sodium 140 potassium 4.6 creatinine 0.5 PHYSICAL EXAM: VITAL SIGNS: Reviewed. GENERAL: Well-developed in no acute distress. ABDOMEN: Soft. Mildly distended. Incisional dressing clean dry and intact. Colostomy bag with air pink stoma no stool NEUROLOGIC: Alert and oriented. Cranial nerves II through XII grossly intact. ASSESSMENT: 1. Perforated sigmoid diverticulitis PLAN: -Advance diet to clear liquids -Continue antibiotics per ID service -Encourage patient to ambulate -Encourage patient to use incentive spirometer -Continue to monitor SANFORD drain output -GI prophylaxis Pepcid and DVT prophylaxis subcu Physician Tenon Machine Operator note has been reviewed by physician. Signing provider agrees with the documented findings, assessment, and plan of care. I have personally seen and examined the patient, reviewed the LITHOGRAPHIC STRIPPER /PAs history, exam and MDM and agree with the assessment and plan as written. Based on total visit time, I have performed more than 50% of the visit. As above: Patient doing well. Still having good ostomy function. Pain is much improved. He is ambulating. Continue antibiotics. Advance to full liquids. Ambulate. Begin dressing changes at wick sites tomorrow. Objective - Vital Signs Vital signs: Vital Signs Temp 98.8 F 11/11/23 07:27 Pulse 80 11/11/23 07:35 Resp 14 11/11/23 07:35 BP 142/86 11/11/23 07:27 Pulse Ox 95 11/11/23 07:27 FiO2 Intake & Output 11/10/23 11/11/23 11/11/23 18:59 06:59 18:59 Intake Total 1950 Output Total 630 700 250 Balance 1320 -700 -250 Intake: Intake, IV Titration 1200 Amount ACETAMINOPHEN IV (For NPO 200 ) 1,000 mg In Empty Bag 1 bag @ 400 mls/hr IVPB Q6HR [facility] Rx#:[id number] Piperacillin-Tazobactam 3 200 .375 gm In Sodium Chloride 0.9% 100 ml @ 25 mls/hr IVPB Q8HR [facility] Rx# :[id number] Sodium Chloride 0.9% 1, 800 000 ml @ 130 mls/hr IV . Q7H42M [facility] Rx#:[id number] Oral 750 Output: Drainage 50 250 Right Abdomen 50 250 Urine 580 700 Other: Voiding Method Indwelling Catheter Indwelling Catheter Indwelling Catheter - Labs CBC & Chem 7: 11/11/23 05:54 11/11/23 05:54 Labs: Abnormal Lab Results - Last 24 Hours (Table) 11/11/23 11/11/23 Range/Units 05:54 05:54 WBC 13.32 H (4.50-10.00) X 10*3/uL RBC 3.80 L (4.40-5.60) X 10*6/uL Hgb 10.9 L (13.0-17.0) g/dL Hct 33.9 L (39.6-50.0) % Plt Count 577 H (140-440) X 10*3/uL MPV 9.3 L (9.5-12.2) FL Immature Gran # 0.12 H (0.00-0.04) X 10*3/uL Neutrophils # 10.44 H (1.80-7.70) X 10*3/uL Creatinine 0.5 L (0.6-1.5) mg/dL BUN/Creatinine Ratio 29.00 H (12.00-20.00) Ratio Calcium 8.3 L (8.7-10.3) mg/dL Microbiology - Last 24 Hours (Table) 11/08/23 17:07 Gram Stain - Preliminary Incision Wound Culture - Preliminary 11/07/23 10:00 Blood Culture - Preliminary Blood 11/07/23 10:15 Blood Culture - Preliminary Blood
[2023-11-11 16:32] VITALS: BMI 31.0
[2023-11-12] MEDS: HYDROmorphone 1 MG/ML 1 ML SYRINGE IVP PRN (03:38)
[2023-11-12 09:33] LABS: Basophils # (A) 0.05 X 10*3/uL (0.00-0.10); Basophils % (A) 0.4 %; Eosinophils # (A) 0.63 X 10*3/uL (0.04-0.35); Eosinophils % (A) 5.6 %; HCT 33.3 % (39.6-50.0); HGB 10.7 g/dL (13.0-17.0); Lymphocytes # (A) 2.11 X 10*3/uL (0.90-5.00); Lymphocytes % (A) 18.6 %; MCH 28.3 pg (27.0-32.0); MCHC 32.1 g/dL (32.0-37.0); MCV 88.1 FL (80.0-97.0); Mean Platelet Volume 9.1 FL (9.5-12.2); Monocytes # (A) 0.73 X 10*3/uL (0.20-1.00); Monocytes % (A) 6.4 %; NRBC Per 100 WBC 0 X 10*3/uL (0.00-0.01); Neutrophils # (A) 7.61 X 10*3/uL (1.80-7.70); Neutrophils % (A) 67.3 %; Platelet Count 526 X 10*3/uL (140-440); RBC 3.78 X 10*6/uL (4.40-5.60); RDW 12.5 % (11.5-14.5); WBC 11.32 X 10*3/uL (4.50-10.00)
--- NOTE | 2023-11-12 12:52 | P.PN ---
Subjective Progress Note Date: 11/11/23 Principal diagnosis: Reason for follow-up is perforated diverticulitis and intra-abdominal abscess Patient is a 33-year-old male with no significant past medical history presenting to the ER for evaluation of left-sided abdominal pain, patient has been diagnosed with diverticulitis with peridiverticular abscess which could not be drained CT-guided patient was taken to the OR and the patient is status post sigmoid colectomy with end colostomy abdominal cultures obtained which are currently pending on today's evaluation that is 11/11/2023, the patient continues to be afebrile, patient is breathing comfortably on room air, the patient denies chest pain shortness of breath and no significant cough, patient denies nausea no vomiting, abdominal pain has decreased in intensity some output in his colostomy. Patient white count is down to 13.32, creatinine 0.5, blood and abdominal cultures currently pending Objective - Vital Signs Vital signs: Vital Signs Temp 98.8 F 11/11/23 07:27 Pulse 80 11/11/23 07:35 Resp 14 11/11/23 07:35 BP 142/86 11/11/23 07:27 Pulse Ox 95 11/11/23 07:27 FiO2 Intake & Output 11/10/23 11/11/23 11/11/23 18:59 06:59 18:59 Intake Total 1950 Output Total 630 700 250 Balance 1320 -700 -250 Intake: Intake, IV Titration 1200 Amount ACETAMINOPHEN IV (For NPO 200 ) 1,000 mg In Empty Bag 1 bag @ 400 mls/hr IVPB Q6HR [facility] Rx#:[id number] Piperacillin-Tazobactam 3 200 .375 gm In Sodium Chloride 0.9% 100 ml @ 25 mls/hr IVPB Q8HR [facility] Rx# :[id number] Sodium Chloride 0.9% 1, 800 000 ml @ 130 mls/hr IV . Q7H42M [facility] Rx#:[id number] Oral 750 Output: Drainage 50 250 Right Abdomen 50 250 Urine 580 700 Other: Voiding Method Indwelling Catheter Indwelling Catheter Indwelling Catheter - Exam GENERAL DESCRIPTION: Middle-age male lying in bed in no distress RESPIRATORY SYSTEM: Unlabored breathing , decreased breath sounds at bases HEART: S1 S2 regular rate and rhythm , ABDOMEN: Soft , mild tenderness EXTREMITIES: No edema feet - Labs CBC & Chem 7: 11/12/23 05:47 11/11/23 05:54 Labs: Abnormal Lab Results - Last 24 Hours (Table) 11/11/23 11/11/23 Range/Units 05:54 05:54 WBC 13.32 H (4.50-10.00) X 10*3/uL RBC 3.80 L (4.40-5.60) X 10*6/uL Hgb 10.9 L (13.0-17.0) g/dL Hct 33.9 L (39.6-50.0) % Plt Count 577 H (140-440) X 10*3/uL MPV 9.3 L (9.5-12.2) FL Immature Gran # 0.12 H (0.00-0.04) X 10*3/uL Neutrophils # 10.44 H (1.80-7.70) X 10*3/uL Creatinine 0.5 L (0.6-1.5) mg/dL BUN/Creatinine Ratio 29.00 H (12.00-20.00) Ratio Calcium 8.3 L (8.7-10.3) mg/dL Microbiology - Last 24 Hours (Table) 11/08/23 17:07 Gram Stain - Preliminary Incision Wound Culture - Preliminary 11/07/23 10:00 Blood Culture - Preliminary Blood 11/07/23 10:15 Blood Culture - Preliminary Blood Assessment and Plan (1) Sepsis Current Visit: Yes Status: Acute Code(s): A41.9 - SEPSIS, UNSPECIFIED ORGANISM SNOMED Code(s): 71214554 (2) Diverticulitis of intestine with abscess Current Visit: Yes Status: Acute Code(s): K57.80 - DVTRCLI OF INTEST, PART U NSP, W PERF AND ABSCESS W/O BLEED SNOMED Code(s): 168229843 Plan: 1patient presented to hospital with sepsis in this patient presented with a fever did have a tachycardia elevated white count source is likely intra- abdominal abscess from perforated sigmoid diverticulitis and will need to cover for enteric gram-negative both aerobes and anaerobes 2- patient is status post laparotomy sigmoid colectomy and end colostomy and abdominal cultures are currently pending 3-patient remains to be afebrile, the patient white count is trending down, patient to continue with Zosyn 3.375 g every 8 hours while waiting for the culture to finalize Dictation was produced using [employer] dictation software. please excuse any grammatical, word or spelling errors. Time with Patient: Less than 30
--- NOTE | 2023-11-12 12:53 | P.PN ---
Subjective Progress Note Date: 11/12/23 Principal diagnosis: Reason for follow-up is perforated diverticulitis and intra-abdominal abscess Patient is a 33-year-old male with no significant past medical history presenting to the ER for evaluation of left-sided abdominal pain, patient has been diagnosed with diverticulitis with peridiverticular abscess which could not be drained CT-guided patient was taken to the OR and the patient is status post sigmoid colectomy with end colostomy abdominal cultures obtained which are currently pending on today's evaluation that is 11/12/2023, the patient remains to be afebrile, patient is currently breathing comfortably on room air, the patient denies chest pain or cough, patient abdominal pain has significantly decreased in intensity no nausea no vomiting and did have output in his colostomy. The patient white count is down to 11.32 abdominal blood cultures so far pending Objective - Vital Signs Vital signs: Vital Signs Temp 98.1 F 11/12/23 07:30 Pulse 78 11/12/23 07:30 Resp 18 11/12/23 07:30 BP 149/89 11/12/23 07:30 Pulse Ox 96 11/12/23 07:30 FiO2 Intake & Output 11/11/23 11/12/23 11/12/23 18:59 06:59 18:59 Output Total 345 20 Balance -345 -20 Weight 95.254 kg Output: Drainage 345 20 Right Abdomen 345 20 Other: Voiding Method Indwelling Catheter Urinal # Voids 2 - Exam GENERAL DESCRIPTION: Middle-age male lying in bed in no distress RESPIRATORY SYSTEM: Unlabored breathing , decreased breath sounds at bases HEART: S1 S2 regular rate and rhythm , ABDOMEN: Soft , mild tenderness EXTREMITIES: No edema feet - Labs CBC & Chem 7: 11/12/23 05:47 11/11/23 05:54 Labs: Abnormal Lab Results - Last 24 Hours (Table) 11/12/23 Range/Units 05:47 WBC 11.32 H (4.50-10.00) X 10*3/uL RBC 3.78 L (4.40-5.60) X 10*6/uL Hgb 10.7 L (13.0-17.0) g/dL Hct 33.3 L (39.6-50.0) % Plt Count 526 H (140-440) X 10*3/uL MPV 9.1 L (9.5-12.2) FL Immature Gran # 0.19 H (0.00-0.04) X 10*3/uL Eosinophils # 0.63 H (0.04-0.35) X 10*3/uL Microbiology - Last 24 Hours (Table) 11/08/23 17:07 Gram Stain - Preliminary Incision Wound Culture - Preliminary Assessment and Plan (1) Sepsis Current Visit: Yes Status: Acute Code(s): A41.9 - SEPSIS, UNSPECIFIED ORGANISM SNOMED Code(s): 13488143 (2) Diverticulitis of intestine with abscess Current Visit: Yes Status: Acute Code(s): K57.80 - DVTRCLI OF INTEST, PART UNSP, W PERF AND ABSCESS W/O BLEED SNOMED Code(s): 913051038 Plan: 1patient presented to hospital with sepsis in this patient presented with a fever did have a tachycardia elevated white count source is likely intra- abdominal abscess from perforated sigmoid diverticulitis and will need to cover for enteric gram-negative both aerobes and anaerobes 2- patient is status post laparotomy sigmoid colectomy and end colostomy and abdominal cultures are currently pending 3-patient remains to be afebrile, the patient white count is trending down, patient to continue with Zosyn 3.375 g every 8 hours, however if the culture remains to be negative and resistant pathogen we will consider oral antibiotics on discharge Family at the bedside questions were answered Dictation was produced using [employer] dictation software. please excuse any gramma tical, word or spelling errors. Time with Patient: Less than 30
[2023-11-12] MEDS ORDERED: HYDROcodone/APAP 5-325MG 1 EACH TAB PO PRN (16:09)
--- NOTE | 2023-11-12 16:12 | P.PN ---
Subjective Progress Note Date: 11/12/23 CHIEF COMPLAINT: Abdominal pain HISTORY OF PRESENT ILLNESS: Perforated sigmoid diverticulitis status post sigmoid colectomy with end colostomy. Postop day #4. Patient's ostomy is functioning. Stool is present. Pain is controlled. He denies any nausea or vomiting. Afebrile. SANFORD drain 95 mL output through the night. 20 mL serosanguineous output this morning. PHYSICAL EXAM: VITAL SIGNS: Reviewed. GENERAL: Well-developed in no acute distress. ABDOMEN: Soft. Mildly distended. Incisional dressing clean dry and intact. Colostomy bag with stool NEUROLOGIC: Alert and oriented. Cranial nerves II through XII grossly intact. ASSESSMENT: 1. Perforated sigmoid diverticulitis PLAN: -Advance diet to low fiber -Add [place] [employer] for oral pain medication. Discontinue IV Tylenol at this time -Incisional dressing and joselyn to be changed. -Continue antibiotics per ID service -Encourage patient to ambulate -Encourage patient to use incentive spirometer -GI prophylaxis Pepcid and DVT prophylaxis subcu Physician Shredder Tender Peat note has been reviewed by physician. Signing provider agrees with the documented findings, assessment, and plan of care. I have personally seen and examined the patient, reviewed the ANODE REBUILDER /PAs history, exam and MDM and agree with the assessment and plan as written. Based on total visit time, I have performed more than 50% of the visit. As above: Patient doing well today. Tolerating diet. Good ostomy function. Pain is much improved. SANFORD drain output decreased. Continue ambulation. Advance to regular diet. Possible discharge 24 to 48 hours. Ostomy teaching. Objective - Vital Signs Vital signs: Vital Signs Temp 98.1 F 11/12/23 07:30 Pulse 78 11/12/23 07:30 Resp 18 11/12/23 07:30 BP 149/89 11/12/23 07:30 Pulse Ox 96 11/12/23 07:30 FiO2 Intake & Output 11/11/23 11/12/23 11/12/23 18:59 06:59 18:59 Output Total 345 20 Balance -345 -20 Weight 95.254 kg Output: Drainage 345 20 Right Abdomen 345 20 Other: Voiding Method Indwelling Catheter Urinal # Voids 2 - Labs CBC & Chem 7: 11/12/23 05:47 11/11/23 05:54 Labs: Abnormal Lab Results - Last 24 Hours (Table) 11/12/23 Range/Units 05:47 WBC 11.32 H (4.50-10.00) X 10*3/uL RBC 3.78 L (4.40-5.60) X 10*6/uL Hgb 10.7 L (13.0-17.0) g/dL Hct 33.3 L (39.6-50.0) % Plt Count 526 H (140-440) X 10*3/uL MPV 9.1 L (9.5-12.2) FL Immature Gran # 0.19 H (0.00-0.04) X 10*3/uL Eosinophils # 0.63 H (0.04-0.35) X 10*3/uL Microbiology - Last 24 Hours (Table) 11/08/23 17:07 Gram Stain - Preliminary Incision Wound Culture - Preliminary
[2023-11-13 08:50] LABS: Basophils # (A) 0.06 X 10*3/uL (0.00-0.10); Basophils % (A) 0.5 %; Eosinophils # (A) 0.67 X 10*3/uL (0.04-0.35); Eosinophils % (A) 5.7 %; HCT 35.7 % (39.6-50.0); HGB 11.8 g/dL (13.0-17.0); Lymphocytes # (A) 2.22 X 10*3/uL (0.90-5.00); Lymphocytes % (A) 18.8 %; MCH 28.8 pg (27.0-32.0); MCHC 33.1 g/dL (32.0-37.0); MCV 87.1 FL (80.0-97.0); Mean Platelet Volume 8.9 FL (9.5-12.2); Monocytes # (A) 0.75 X 10*3/uL (0.20-1.00); Monocytes % (A) 6.4 %; NRBC Per 100 WBC 0 X 10*3/uL (0.00-0.01); Neutrophils # (A) 7.85 X 10*3/uL (1.80-7.70); Neutrophils % (A) 66.6 %; Platelet Count 553 X 10*3/uL (140-440); RDW 12.6 % (11.5-14.5); WBC 11.79 X 10*3/uL (4.50-10.00)
--- NOTE | 2023-11-13 15:42 | P.PN ---
Subjective Progress Note Date: 11/13/23 CHIEF COMPLAINT: Abdominal pain HISTORY OF PRESENT ILLNESS: Perforated sigmoid diverticulitis status post sigmoid colectomy with end colostomy. Postop day #5. Patient's ostomy is functioning. Pain is controlled. Further ostomy teaching today. He denies any nausea or vomiting. Afebrile. SANFORD drain serosanguineous output 20 mL PHYSICAL EXAM: VITAL SIGNS: Reviewed. GENERAL: Well-developed in no acute distress. ABDOMEN: Soft. Nondistended. Incisional dressing clean dry and intact. Colostomy bag with stool NEUROLOGIC: Alert and oriented. Cranial nerves II through XII grossly intact. ASSESSMENT: 1. Perforated sigmoid diverticulitis PLAN: -Anticipate discharge tomorrow -Discharge antibiotics per infectious disease -Continue low fiber diet -discontinue IV fluids -GI prophylaxis Pepcid and DVT prophylaxis subcu Physician Inspectors And Regulatory Officers note has been reviewed by physician. Signing provider agrees with the documented findings, assessment, and plan of care. Objective - Vital Signs Vital signs: Vital Signs Temp 97.8 F 11/13/23 08:00 Pulse 75 11/13/23 08:00 Resp 20 11/13/23 08:00 BP 155/93 11/13/23 08:00 Pulse Ox 96 11/13/23 02:00 FiO2 Intake & Output 11/12/23 11/13/23 11/13/23 18:59 06:59 18:59 Intake Total 2680 Output Total 385 1100 Balance 2295 -1100 Intake: Intake, IV Titration 1240 Amount ACETAMINOPHEN IV (For NPO 100 ) 1,000 mg In Empty Bag 1 bag @ 400 mls/hr IVPB Q6HR [facility] Rx#:[id number] Piperacillin-Tazobactam 3 100 .375 gm In Sodium Chloride 0.9% 100 ml @ 25 mls/hr IVPB Q8HR [facility] Rx# :[id number] Sodium Chloride 0.9% 1, 1040 000 ml @ 130 mls/hr IV . Q7H42M [facility] Rx#:[id number] Oral 1440 Output: Drainage 185 100 Right Abdomen 185 100 Urine 800 Stool 200 200 Other: Voiding Method Urinal - Labs CBC & Chem 7: 11/13/23 05:24 11/11/23 05:54 Labs: Abnormal Lab Results - Last 24 Hours (Table) 11/13/23 Range/Units 05:24 WBC 11.79 H (4.50-10.00) X 10*3/uL RBC 4.10 L (4.40-5.60) X 10*6/uL Hgb 11.8 L (13.0-17.0) g/dL Hct 35.7 L (39.6-50.0) % Plt Count 553 H (140-440) X 10*3/uL MPV 8.9 L (9.5-12.2) FL Immature Gran # 0.24 H (0.00-0.04) X 10*3/uL Neutrophils # 7.85 H (1.80-7.70) X 10*3/uL Eosinophils # 0.67 H (0.04-0.35) X 10*3/uL Microbiology - Last 24 Hours (Table) 11/08/23 17:07 Gram Stain - Final Incision Wound Culture - Final 11/07/23 10:00 Blood Culture - Final Blood 11/07/23 10:15 Blood Culture - Final Blood 11/08/23 17:07 Anaerobic Culture - Final Incision Coagulase Negative Staph
[2023-11-14 08:21] VITALS: BP 133/93; PULSE 80; RESP 18; TEMP 98.5
[2023-11-14 09:10] LABS: Basophils # (A) 0.1 k/uL (0-0.2); Basophils % (A) 1 %; Eosinophils # (A) 0.5 k/uL (0-0.7); Eosinophils % (A) 5 %; HCT 38.6 % (39.0-53.0); HGB 12.8 gm/dL (13.0-17.5); Lymphocytes # (A) 1.5 k/uL (1.0-4.8); Lymphocytes % (A) 17 %; MCH 29.3 pg (25.0-35.0); MCHC 33.2 g/dL (31.0-37.0); MCV 88.4 fL (80.0-100.0); Monocytes # (A) 0.3 k/uL (0-1.0); Monocytes % (A) 4 %; Neutrophils # (A) 6.6 k/uL (1.3-7.7); Neutrophils % (A) 73 %; Platelet Count 642 k/uL (150-450); RBC 4.37 m/uL (4.30-5.90); RDW 13.4 % (11.5-15.5); WBC 9.1 k/uL (3.8-10.6)
--- NOTE | 2023-11-14 13:17 | P.DS ---
Providers Date of admission: 11/07/23 10:23 Expected date of discharge: 11/14/23 Attending physician: Sebastian Carrillo Consults: 11/08/23 08:25 Consult Physician Routine Consulting Provider: Ember Muhammad Consult Reason/Comments: diverticulitis with abscess Do you want consulting provider notified?: Yes Primary care physician: Stated None Hospital Course: Discharge diagnosis 1. Perforated sigmoid diverticulitis Hospital course This is a 33-year-old male who presented to hospital with left lower quadrant abdominal pain. CT scan abdomen and pelvis had shown evidence of acute diverticulitis of the ascending colon and sigmoid colon with abscess anterior to the colon with surrounding inflammatory changes. Patient was evaluated by interventional radiology did not was not a candidate for drainage of the abscess. The CT unfortunately had shown multiple foci of air in the sigmoid colon. At that point it is decided to proceed with surgery. Patient is status post sigmoid colectomy with end colostomy. Patient tolerating diet. Ostomy is functioning. He is afebrile. He has been up and ambulating. He is stable for discharge. Please refer to chart for any further details. Physician Enginehouse Brakeman note has been reviewed by physician. Signing provider agrees with the documented findings, assessment, and plan of care. Patient Condition at Discharge: Stable Plan - Discharge Summary New Discharge Prescriptions: New HYDROcodone/APAP 5-325MG [Jackson 5-325] 1 tab PO Q6HR PRN 3 Days #12 tab PRN Reason: Pain Amoxic-Pot Clav 875-125Mg [Augmentin 875-125] 1 tab PO Q12HR 10 Days #20 tab Doxycycline [Vibramycin] 100 mg PO BID 10 Days #20 capsule Discontinued Cetirizine HCl [Zyrtec] 10 mg PO DAILY Discharge Medication List Amoxic-Pot Clav 875-125Mg [Augmentin 875-125] 1 tab PO Q12HR 10 Days #20 tab 11/14/23 [Rx] Doxycycline [Vibramycin] 100 mg PO BID 10 Days #20 capsule 11/14/23 [Rx] HYDROcodone/APAP 5-325MG [Jackson 5-325] 1 tab PO Q6HR PRN 3 Days #12 tab 11/14/23 [Rx] Follow up Appointment(s)/Referral(s): None,Stated [Primary Care Provider] - 1-2 days [facility] Visiting Nurse, [NON-STAFF] - As Needed Boutt,Sebastian, MD [Medical Doctor] - 1 Week Activity/Diet/Wound Care/Special Instructions: Corey 1 piece 8918 non sting pads for peristoma area osman used on top are of stoma 9-12oclock stoma powder for skin care prn ostomy deoderant change ostomy bag every 3-5 days and prn when seal is broke No driving while taking Jackson No lifting over 10 pounds You may shower. No soaking or tub baths for 2 weeks Very light activity until you are reevaluated at your follow up appointment with your surgeon Keep a log of SANFORD drain output and bring with you to your follow-up appointment Milk/strip drains 2-3 times a day Discharge Disposition: HOME WITH HOME HEALTH SERVICES
--- NOTE | 2023-11-14 14:16 | P.PN ---
Subjective Progress Note Date: 11/13/23 Principal diagnosis: Reason for follow-up is perforated diverticulitis and intra-abdominal abscess Patient is a 33-year-old male with no significant past medical history presenting to the ER for evaluation of left-sided abdominal pain, patient has been diagnosed with diverticulitis with peridiverticular abscess which could not be drained CT-guided patient was taken to the OR and the patient is status post sigmoid colectomy with end colostomy abdominal cultures obtained which are currently pending on today's evaluation that is 11/13/2023, the patient is afebrile, patient is on room air, the patient denies chest pain shortness of breath or cough, patient denies nausea no vomiting no abdominal pain and did have output in his colostomy. The patient white count 11.79 abdominal culture showing coagulase-negative staph Objective - Vital Signs Vital signs: Vital Signs Temp 98.3 F 11/13/23 02:00 Pulse 76 11/13/23 02:00 Resp 16 11/13/23 02:00 BP 134/85 11/13/23 02:00 Pulse Ox 96 11/13/23 02:00 FiO2 Intake & Output 11/12/23 11/13/23 11/13/23 18:59 06:59 18:59 Intake Total 2680 Output Total 385 Balance 2295 Intake: Intake, IV Titration 1240 Amount ACETAMINOPHEN IV (For NPO 100 ) 1,000 mg In Empty Bag 1 bag @ 400 mls/hr IVPB Q6HR [facility] Rx#:[id number] Piperacillin-Tazobactam 3 100 .375 gm In Sodium Chloride 0.9% 100 ml @ 25 mls/hr IVPB Q8HR [facility] Rx# :[id number] Sodium Chloride 0.9% 1, 1040 000 ml @ 130 mls/hr IV . Q7H42M [facility] Rx#:[id number] Oral 1440 Output: Drainage 185 Right Abdomen 185 Stool 200 - Exam GENERAL DESCRIPTION: Middle-age male lying in bed in no distress RESPIRATORY SYSTEM: Unlabored breathing , decreased breath sounds at bases HEART: S1 S2 regular rate and rhythm , ABDOMEN: Soft , mild tenderness EXTREMITIES: No edema feet - Labs CBC & Chem 7: 11/14/23 08:52 11/11/23 05:54 Labs: Abnormal Lab Results - Last 24 Hours (Table) 11/13/23 Range/Units 05:24 WBC 11.79 H (4.50-10.00) X 10*3/uL RBC 4.10 L (4.40-5.60) X 10*6/uL Hgb 11.8 L (13.0-17.0) g/dL Hct 35.7 L (39.6-50.0) % Plt Count 553 H (140-440) X 10*3/uL MPV 8.9 L (9.5-12.2) FL Immature Gran # 0.24 H (0.00-0.04) X 10*3/uL Neutrophils # 7.85 H (1.80-7.70) X 10*3/uL Eosinophils # 0.67 H (0.04-0.35) X 10*3/uL Microbiology - Last 24 Hours (Table) 11/07/23 10:00 Blood Culture - Final Blood 11/07/23 10:15 Blood Culture - Final Blood 11/08/23 17:07 Anaerobic Culture - Final Incision Coagulase Negative Staph Assessment and Plan (1) Sepsis Current Visit: Yes Status: Acute Code(s): A41.9 - SEPSIS, UNSPECIFIED ORGANISM SNOMED Code(s): 27015739 (2) Diverticulitis of intestine with abscess Current Visit: Yes Status: Acute Code(s): K57.80 - DVTRCLI OF INTEST, PART UNSP, W PERF AND ABSCESS W/O BLEED SNOMED Code(s): 028664754 Plan: 1patient presented to hospital with sepsis in this patient presented with a fever did have a tachycardia elevated white count source is likely intra- abdominal abscess from perforated sigmoid diverticulitis and will need to cover for enteric gram-negative both aerobes and anaerobes 2- patient is status post laparotomy sigmoid colectomy and end colostomy and abdominal cultures are currently pending 3-patient remains to be afebrile, the patient white count is trending down, we will try to get a final from the micro lab on his cultures continue with the Zosyn with the discharge antibiotic on the basis of final culture Dictation was produced using [employer] dictation software. please excuse any grammatical, word or spelling errors. Time with Patient: Less than 30
--- NOTE | 2023-11-14 14:17 | P.PN ---
Subjective Progress Note Date: 11/14/23 Principal diagnosis: Reason for follow-up is perforated diverticulitis and intra-abdominal abscess Patient is a 33-year-old male with no significant past medical history presenting to the ER for evaluation of left-sided abdominal pain, patient has been diagnosed with diverticulitis with peridiverticular abscess which could not be drained CT-guided patient was taken to the OR and the patient is status post sigmoid colectomy with end colostomy abdominal cultures obtained which are currently pending on today's evaluation that is 11/14/2023, the patient remains to be afebrile, patient is currently breathing comfortably on room air, the patient denies chest pain and no significant cough, patient denies abdominal pain, no nausea no vomiting tolerating his diet and did have output in his colostomy. Patient white count normalized to 9.1 Objective - Vital Signs Vital signs: Vital Signs Temp 98.5 F 11/14/23 07:23 Pulse 80 11/14/23 07:23 Resp 18 11/14/23 07:23 BP 133/93 11/14/23 07:23 Pulse Ox 96 11/14/23 07:23 FiO2 Intake & Output 11/13/23 11/14/23 11/14/23 18:59 06:59 18:59 Intake Total 240 100 240 Output Total 1300 1280 Balance -1060 -1180 240 Intake: Intake, IV Titration 100 Amount Piperacillin-Tazobactam 3 100 .375 gm In Sodium Chloride 0.9% 100 ml @ 25 mls/hr IVPB Q8HR [facility] [place] Rx# :[id number] Oral 240 240 Output: Drainage 100 30 Right Abdomen 100 30 Urine 800 1250 Stool 400 Other: Voiding Method Urinal Urinal # Voids 3 2 - Exam GENERAL DESCRIPTION: Middle-age male lying in bed in no distress RESPIRATORY SYSTEM: Unlabored breathing , decreased breath sounds at bases HEART: S1 S2 regular rate and rhythm , ABDOMEN: Soft , mild tenderness EXTREMITIES: No edema feet - Labs CBC & Chem 7: 11/14/23 08:52 11/11/23 05:54 Labs: Abnormal Lab Results - Last 24 Hours (Table) 11/14/23 Range/Units 08:52 Hgb 12.8 L (13.0-17.5) gm/dL Hct 38.6 L (39.0-53.0) % Plt Count 642 H (150-450) k/uL Microbiology - Last 24 Hours (Table) 11/08/23 17:07 Gram Stain - Final Incision Wound Culture - Final Assessment and Plan (1) Sepsis Current Visit: Yes Status: Acute Code(s): A41.9 - SEPSIS, UNSPECIFIED ORGANISM SNOMED Code(s): 46602068 (2) Diverticulitis of intestine with abscess Current Visit: Yes Status: Acute Code(s): K57.80 - DVTRCLI OF INTEST, PART UNSP, W PERF AND ABSCESS W/O BLEED SNOMED Code(s): 626318759 Plan: 1patient presented to hospital with sepsis in this patient presented with a fever did have a tachycardia elevated white count source is likely intra- abdominal abscess from perforated sigmoid diverticulitis and will need to cover for enteric gram-negative both aerobes and anaerobes 2- patient is status post laparotomy sigmoid colectomy and end colostomy and abdominal cultures are currently pending 3-patient remains to be afebrile, and the patient white count has normalized abdominal culture did not grow any resistant pathogen coagulase-negative staph possible skin irene we will recommend Augmentin doxycycline x 10 days on discharge discussed with the surgical [employer] Dictation was produced using [employer] dictation software. please excuse any grammatical, word or spelling errors. Time with Patient: Less than 30
== END 2023-11-14 14:52 | disposition home health service (06) | DRG 853 ==
LOC: EC 08:40 → 4SSUR 10:23
PROVIDERS: ADMIT Surgery; ATTEND Surgery
PROC: 0D1M0Z4 Bypass Descending Colon to Cutaneous, Open Approach (ICD-10-PCS; principal; 2023-11-08 08:50)
PROC: 0DTN0ZZ Resection of Sigmoid Colon, Open Approach (ICD-10-PCS; principal; 2023-11-08 08:50)
DX: A41.9 Sepsis, unspecified organism (principal); K65.1 Peritoneal abscess; K57.20 Diverticulitis of large intestine with perforation and abscess without bleeding; Z82.49 Family history of ischemic heart disease and other diseases of the circulatory system; Z86.14 Personal history of Methicillin resistant Staphylococcus aureus infection; Z87.891 Personal history of nicotine dependence
CPT/HCPCS: 36415; 74177; 76380; 80048; 80053; 81003; 83605; 83690; 85025; 85610; 86850; 86900; 86901; 87040; 87070; 87075; 87102; 87205; 88307; 94760; 96361; 96365; 96366; 96368; 96375; 99285

== ENCOUNTER → 2024-01-07 | Outpatient (CLI) | payer BC ==
--- NOTE | 2024-01-08 10:17 | CT ---
EXAMINATION TYPE: CT abdomen pelvis w con DATE OF EXAM: 01/07/2024 COMPARISON: 11/07/2023 HISTORY: Bowel resection x 2 months ago, lower abdominal pain since CT DLP: 1203.4 mGycm CONTRAST: CT scan of the abdomen and pelvis is performed with Oral Contrast and with IV Contrast, patient injec terry with 100 mL of Isovue 300. FINDINGS: LUNG BASES-: No visible nodule. Right basilar infiltrate and/or atelectasis. Correlate clinically. LIVER/GB: No calcified gallstones. No space occupying hepatic lesion. Biliary tree is of normal ca liber. PANCREAS: No inflammation. No distinct mass. SPLEEN: No splenic enlargement. No lesion seen. ADRENALS: No nodule. No thickening. KIDNEYS/BLADDER: No hydronephrosis. No nephrolithiasis. No distinct renal mass. Persistent urinary bladder wall thickening may reflect nonspecific cystitis. 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 No evidence for residual diverticulitis. No evidence for residual abscess. No evidence for bowel o bstruction. GENITAL ORGANS: No gross abnormality. LYMPH NODES: No greater than 1cm abdominal or pelvic lymph nodes are appreciated. AORTA: No significant abnormality. OSSEOUS STRUCTURES: No significant abnormality is seen. OTHER: No significant additional abnormality is seen. IMPRESSION: 1. 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 N o evidence for residual diverticulitis. No evidence for residual abscess. No evidence for bowel obstr uction. 2.Persistent urinary bladder wall thickening may reflect nonspecific cystitis.
== END | disposition home or self-care (01) ==
LOC: RADCTMAIN 15:35
PROVIDERS: ATTEND Surgery
DX: K57.32 Diverticulitis of large intestine without perforation or abscess without bleeding (principal); N32.9 Bladder disorder, unspecified
CPT/HCPCS: 74177; Q9967

== ENCOUNTER → 2024-02-04 | Outpatient (CLI) | payer BC ==
--- NOTE | 2024-02-07 13:11 | CT ---
EXAMINATION TYPE: CT abdomen pelvis w con DATE OF EXAM: 02/04/2024 COMPARISON: 01/07/2024 INDICATION: Hx of diverticulitis. Recent bowel resection. Pt c/o on going abdominal pain. DLP: 1851 mGycm, Automated exposure control for dose reduction was used. CONTRAST: 100 mL of Isovue 300. Study performed without Oral Contrast TECHNIQUE: Axial images were obtained from above the diaphragm to the pubic rami in the axial plane a t 5 mm thick sections. Reconstructed images are reviewed on the computer in the coronal plane. FINDINGS: Limited CT sections are obtained the lung bases. There is a stable appearing streaky opacity at the right lung base. Correlate for atelectasis or pneumonia. Continued follow-up is recommended. There ma y be some right pleural thickening posteriorly. CT ABDOMEN: Liver: Normal Spleen: Normal Pancreas: Normal Adrenal glands: The adrenal glands are normal. Gallbladder: Normal Kidneys: No masses are evident. No hydronephrosis is present. No cysts are present. Delayed images were obtained through the kidneys, which remain unremarkable. Aorta: Normal Inferior vena cava: Normal. CT PELVIS: There appears to be a colostomy in left lower quadrant. There is a loop of contrast-filled nonobstruc terry small bowel herniated into the ostomy site. There are loops of bowel which are incompletely diste nded or lack oral contrast limiting their evaluation. There is resection of the descending colon and sigmoid colon. Appendix: Normal as visualized. Urinary bladder: There may be some mild wall thickening of the urinary bladder. Query for cystitis. Genitourinary structures: Prostate appears normal Osseous structures: No suspicious lytic or sclerotic lesions. IMPRESSION: 1. Herniation of a small bowel loop into the colostomy site without obstruction. 2. Persistent streaky opacity right lung base. Correlate for atelectasis or pneumonia.
== END | disposition home or self-care (01) ==
LOC: RADCTMAIN 16:42
PROVIDERS: ATTEND Surgery
DX: K94.09 Other complications of colostomy (principal); R91.8 Other nonspecific abnormal finding of lung field; K57.32 Diverticulitis of large intestine without perforation or abscess without bleeding
CPT/HCPCS: 74177; Q9967